=== PATIENT | female | born 1995 | race Caucasian/White ===

== ENCOUNTER 2018-11-05 18:26 | Emergency (ER) | payer MEDICAID ==
[2018-11-05 18:32] VITALS: BP 127/80
--- NOTE | 2018-11-05 19:30 | XRAY Report ---
Reason: pain/swelling after hitting it saturday Procedure Date: 11/05/2018 Accession Number: [id number] / [id number] Procedure: XR - Finger(s) RT CPT Code: FULL RESULT: EXAM: RIGHT DIGIT RADIOGRAPHY EXAM DATE: 11/05/2018 07:10 PM. CLINICAL HISTORY: Pain/swelling after hitting it saturday. COMPARISON: None. TECHNIQUE: 3 views. FINDINGS: Bones: No acute fractures or suspicious bone lesions. Joints: No subluxations. Soft Tissues: Unremarkable. IMPRESSION: No acute radiographic abnormalities. RADIA
--- NOTE | 2018-11-05 19:37 | ED Physician Documentation ---
PD HPI UPPER EXT INJURY - Stated complaint Stated Complaint: RT HAND MIDDLE FINGER PX - Chief complaint Chief Complaint: Ext Problem - History obtained from History obtained from: Patient - History of Present Illness Location: Right, Finger (middle) Type of injury: Blunt / blow (she struck it while riding horse. Denies twisting injury per se. Has had bruising and pain/tenderness still. Has bulky splint on which she says does not make it feel better.) Where injury occurred: Home Timing - onset: How many days ago (3) Timing - duration: Days (3) Timing - details: Abrupt onset, Still present Improved by: Rest Worsened by: Moving, Palpating Associated symptoms: Swelling, Discolored (bruising). No: Weakness, Numbness Similar symptoms before: Has not had sx before Recently seen: Not recently seen Review of Systems Constitutional: denies: Fever, Chills Skin: denies: Abrasion (s), Laceration (s) Neurologic: denies: Focal weakness, Numbness PD PAST MEDICAL HISTORY - Past Medical History Past Medical History: Yes Respiratory: Asthma Psych: Depression - Past Surgical History Past Surgical History: No - Present Medications Home Medications: Ambulatory Orders Medication Instructions Recorded Confirmed Bcp 05/04/15 05/04/15 Doxylamine/Pyridoxine HCl 1 each PO Q6H PRN #15 tablet. 04/02/16 11/07/17 [Keeley Edmond 10-10 mg Tablet] Vitamin [Trinatal Rx 1] 1 each PO DAILY #90 tablet 04/02/16 11/07/17 Acyclovir 400 mg PO Q8H #30 tablet 11/07/17 Metronidazole [Flagyl] 500 mg PO BID #14 tablet 11/07/17 Polymyxin B Sulf/Trimethoprim 1 drop LEFTEYE Q3H 7 Days drops 11/07/17 [Polytrim Eye Drops] - Allergies Allergies/Adverse Reactions: Allergies Allergy/AdvReac Type Severity Reaction Status Date / Time Penicillins Allergy Mild Rash Verified 11/05/18 18:32 - Social History Does the pt smoke?: No Smoking Status: Never smoker Does the pt drink ETOH?: No Does the pt have substance abuse?: No - Immunizations Immunizations are current?: Yes - POLST Patient has POLST: No PD ED PE NORMAL - Vitals Vital signs reviewed: Yes - General General: Alert and oriented X 3, No acute distress, Well developed/nourished - Derm Derm: Normal color, Warm and dry - Extremities Extremities: Other (right middle finger with some bruising dorsally at middle phalanx mostly. No deformity. Guarded/stiff ROM. Able to extend and flex. No laxity noted on stress testing of IP collateral ligaments. ) - Neuro Neuro: Alert and oriented X 3, No motor deficit, No sensory deficit Results - Vitals Vitals: Oxygen O2 Source Room air - Rads (name of study) finger xray right middle Radiology: Prelim report reviewed, EMP read contemporaneously (no fractures), See rad report PD MEDICAL DECISION MAKING - ED course Complexity details: reviewed results (xray without bony deformity), considered differential (no gross laxity on finger joints. Tender c/w contusion. ), d/w patient Departure - Departure Disposition: 01 Home, Self Care Clinical Impression: Finger contusion Qualifiers: Encounter type: initial encounter Finger: middle finger Damage to nail status: without damage Laterality: right Qualified Code(s): S60.031A - Contusion of right middle finger without damage to nail, initial encounter Condition: Stable Record reviewed to determine appropriate education?: Yes Instructions: ED Contusion Finger Comments: Finger splint for the finger to help protect it. Progress use of it and range of motion as able. Your x-ray did not show any fractures. I presume will be sore for several days more to week. Tylenol or ibuprofen if needed for pains. Discharge Date/Time: 11/05/18 20:15
[2018-11-05] MEDS ORDERED: NAPROXEN 250 MG TABLET PO STA (20:00)
== END 2018-11-05 20:15 | disposition home or self-care (01) ==
LOC: ED 18:26
DX: S60.031A Contusion of right middle finger without damage to nail, initial encounter (principal); W22.8XXA Striking against or struck by other objects, initial encounter; Y93.52 Activity, horseback riding
CPT/HCPCS: 73140; 99283; A9270

== ENCOUNTER 2019-03-18 16:45 | Outpatient (CLI) | payer MEDICAID ==
--- NOTE | 2019-03-19 15:56 | Ultrasound Report ---
Reason: PRENANCY TEST POSITIVE Procedure Date: 03/18/2019 Accession Number: [id number] / [id number] Procedure: US - OB First Trimester CPT Code: FULL RESULT: EXAM: FIRST TRIMESTER OBSTETRIC ULTRASOUND (Less than 11 weeks) EXAM DATE: 03/18/2019 04:54 PM. CLINICAL HISTORY: TEST POSITIVE. LMP: 01/20/2019. COMPARISONS: OB F/U OR REPEAT 07/04/2016 3:22 PM OB DETAILED EVAL 05/31/2016 7:54 AM. TECHNIQUE: Transabdominal and transvaginal ultrasound examination with static image documentation. CLINICAL DATES: EGA 10 weeks 1 day with LILI 10/13/2019 based on LMP. ASSESSMENT: Gestational Sac: Single intrauterine. Mean gestational sac diameter: 40 mm. Embryo: CRL (crown-rump length) 32 mm = 9 weeks 5 days. Cardiac activity: 169 beats per minute. Yolk sac: 5 mm. Amniotic fluid: Not accurately assessed at this gestational age. Early placenta: Not visible at this gestational age. Other: No perigestational fluid collection demonstrated. MATERNAL STRUCTURES: Uterus: Anteverted. Unremarkable. Cervix: Closed. Right Ovary/Adnexa: The ovary measures 3.6 x 2.5 x 3.7 cm, volume 17.7 cc. Echogenic complex mass measuring 3.0 x 2.8 x 2.6 cm with hyperechoic foci. Left Ovary/Adnexa: The ovary measures 4.0 x 2.1 x 1.9 cm, volume 8.1 cc. Corpus luteum is noted. Free Fluid: None. Other: None. IMPRESSION: 1. Single viable intrauterine at EGA 9 weeks 5 days with LILI 10/16/2019 based on crown-rump length, which is concordant with LMP. 2. Assigned dating is LILI 10 weeks 1 day based on LMP. RADIA
== END 2019-03-18 16:46 | disposition home or self-care (01) ==
LOC: DI 16:45
PROVIDERS: ATTEND Registered Nurse
DX: Z32.01 Encounter for pregnancy test, result positive (principal)
CPT/HCPCS: 76801; 76817

== ENCOUNTER 2019-03-25 10:09 | Outpatient (CLI) | payer MEDICAID ==
[2019-03-25 10:42] LABS: BASOPHILS % (AUTO) 0.6 %; EOSINOPHILS # (AUTO) 0.1 10^3/uL (0.0-0.7); EOSINOPHILS % (AUTO) 0.9 %; HGB - HEMOGLOBIN 12.5 g/dL (12.0-16.0); LYMPHOCYTES # (AUTO) 1.5 10^3/uL (1.5-3.5); MEAN CORPUSCULAR HEMOGLOBIN 28.7 pg (27.0-31.0); MEAN CORPUSCULAR HGB CONC 33.8 g/dL (32.0-36.0); MEAN CORPUSCULAR VOLUME 85.1 fL (81.0-99.0); MEAN PLATELET VOLUME 7.9 fL (7.9-10.8); MONOCYTES # (AUTO) 0.4 10^3/uL (0.0-1.0); MONOCYTES % (AUTO) 5.8 %; NEUTROPHILS # (AUTO) 4.8 10^3/uL (1.5-6.6); NEUTROPHILS % (AUTO) 70.7 %; PLT - PLATELET COUNT 222 10^3/uL (130-450); RED BLOOD COUNT 4.35 10^6/uL (4.20-5.40); RED CELL DISTRIBUTION WIDTH 13.2 % (12.0-15.0); WHITE BLOOD COUNT 6.7 x10^3/uL (4.8-10.8)
[2019-03-25 10:49] LABS: MUDS CUTOFF CONCENTRATIONS CUTOFF CONC BELOW:
[2019-03-25 11:19] LABS: AMPHETAMINE SCREEN,URINE NEGATIVE (NEGATIVE); BENZODIAZEPINES SCREEN, URINE NEGATIVE (NEGATIVE); COCAINE SCREEN URINE NEGATIVE (NEGATIVE); METHADONE SCREEN, URINE NEGATIVE (NEGATIVE); METHAMPHETAMINES SCREEN, URINE NEGATIVE (NEGATIVE); OPIATE SCREEN, URINE NEGATIVE (NEGATIVE); OXYCODONE SCREEN, URINE NEGATIVE (NEGATIVE); PROPOXYPHENE SCREEN, URINE NEGATIVE (NEGATIVE); TRICYCLIC ANTIDEPRESSANT,URINE NEGATIVE (NEGATIVE)
[2019-03-25 21:48] LABS: TRICHOMONAS VAGINALIS DNA NEGATIVE (NEGATIVE)
[2019-03-26 12:11] LABS: HEPATITIS C ANTIBODY NON-REACTIVE (NON-REACTIVE)
[2019-03-26 12:12] LABS: HEPATITIS B SURFACE ANTIGEN NON-REACTIVE (NON-REACTIVE)
[2019-03-26 14:56] LABS: HIV AG/AB 4TH GEN NON-REACTIVE (NON-REACTIVE)
== END 2019-03-25 10:10 | disposition home or self-care (01) ==
LOC: LAB 10:09
PROVIDERS: ATTEND Nurse Practitioner Obstetrics & Gynecology
DX: Z36.89 Encounter for other specified antenatal screening (principal)
CPT/HCPCS: 36415; 80306; 81599; 85025; 86592; 86762; 86803; 86850; 86900; 86901; 87340; 87389; 87491; 87591; 87661

== ENCOUNTER 2019-05-25 07:37 | Outpatient (CLI) | payer MEDICAID ==
--- NOTE | 2019-05-26 10:37 | Ultrasound Report ---
Reason: ENCOUNTER FOR OTHER SPECIFIED SCREENING Procedure Date: 05/25/2019 Accession Number: [id number] / [id number] Procedure: US - OB Detailed Eval CPT Code: FULL RESULT: EXAM: COMPLETE OBSTETRICAL ULTRASOUND EXAM DATE: 05/25/2019 07:48 AM. CLINICAL HISTORY: anatomic survey. COMPARISON: OB FIRST TRIMESTER 03/18/2019 4:54 PM. TECHNIQUE: Real-time sonographic evaluation of the fetus performed by the pre kindergarten teacher. Multiple underwriting sales representative static images were saved for review. Additional transvaginal imaging to more accurately evaluate cervical length/placental position/etc. DATING: Established EGA 19 weeks 6 days with LILI 10/13/2019 based on provided assigned dating. EGA 19 weeks 6 days with LILI 10/13/2019 based on the current ultrasound. GENERAL EVALUATION Olivo . Cardiac activity: 149 bpm. movement: Visualized. Presentation: Cephalic. Placenta: Posterior position. No evidence for previa. Umbilical cord: 3 vessel cord. Central placental cord origin into placental ford. Amniotic fluid: Normal. ALLEY 9.9 MVP 3.2 cm. BIOMETRY Bi-Parietal Diameter (BPD): 4.66 cm, 20 weeks 1 days Head Circumference (HC): 17.2 cm, 19 weeks 5 days Abdominal Circumference (AC): 14.0 cm, 19 weeks 3 days Femur Length (FL): 3.2 cm, 19 weeks 6 days Estimated Weight: 304 g, 33 percentile for weeks/days. ANATOMY The intracranial structures, profile, face/nose/lips, spine, 4 chamber heart and outflow tracts, stomach, abdominal wall and cord insertion, diaphragm, kidneys, bladder, and extremities were visualized and demonstrate no abnormality. MATERNAL STRUCTURES Uterus: Unremarkable. Cervix: Long and closed. Transabdominal length 4.2 cm. Right ovary/adnexa: Unremarkable. Left ovary/adnexa: Unremarkable. Free fluid: None. IMPRESSION: 1. Olivo live intrauterine with gestational age 19 weeks 6 days based on assigned dating. 2. Estimated weight is within expected limits for assigned dating. 3. Normal anatomic survey. No anatomic abnormalities are detected at this time. RADIA
== END 2019-05-25 07:38 | disposition home or self-care (01) ==
LOC: DI 07:37
PROVIDERS: ATTEND Nurse Practitioner Obstetrics & Gynecology
DX: Z36.89 Encounter for other specified antenatal screening (principal)
CPT/HCPCS: 76811

== ENCOUNTER 2019-07-17 08:00 | Outpatient (CLI) | payer MEDICAID | END 2019-07-17 23:59 | disposition home or self-care (01) | LOC: LAB.R 08:00 | PROVIDERS: ATTEND Obstetrics & Gynecology | DX: O60.02 Preterm labor without delivery, second trimester (principal) | CPT/HCPCS: 82731 ==

== ENCOUNTER 2019-07-17 10:42 | Outpatient (CLI) | payer MEDICAID ==
--- NOTE | 2019-07-17 13:28 | Ultrasound Report ---
Reason: SMALL FOR GESTATIONAL AGE FETUS,PELVIC PAIN,PRE Procedure Date: 07/17/2019 Accession Number: [id number] / [id number] Procedure: US - OB F/U or Repeat CPT Code: FULL RESULT: EXAM: FOLLOW-UP OBSTETRICAL ULTRASOUND EXAM DATE: 07/17/2019 11:51 AM. CLINICAL HISTORY: Pelvic pain. Small for gestational age. COMPARISON: OB DETAILED EVAL 05/25/2019 7:48 AM. TECHNIQUE: Real-time sonographic evaluation of the fetus performed by the chemical production technician. Additional transvaginal imaging to more accurately evaluate cervical length/placental position/etc. Multiple apprenticeship training representative static images were saved for review. DATING: Established EGA 27 weeks 3 days with LILI 10/13/2019 based on established dating. EGA 27 weeks 3 days with LILI 10/13/2019 based on prior ultrasound. EGA 26 weeks 6 days with LILI 10/17/2019 based on the current ultrasound. GENERAL EVALUATION Olivo . Cardiac activity: 148 bpm. movement: Visualized. Presentation: Cephalic. Placenta: Posterior position. Amniotic fluid: Normal. ALLEY 11.0 cm. MVP 3.4 cm. BIOMETRY Bi-Parietal Diameter (BPD): 6.8 cm, 27 weeks 0 days Head Circumference (HC): 25.2 cm, 27 weeks 3 days Abdominal Circumference (AC): 20.9 cm, 25 weeks 3 days Femur Length (FL): 5.2 cm, 27 weeks 4 days Estimated Weight: 946 g, 11.0 percentile for 27 week 3 day gestation. MATERNAL STRUCTURES Cervix is closed and measures 4.2 cm in length by transvaginal imaging. IMPRESSION: 1. Olivo live intrauterine with gestational age 27 weeks 3 days based on established dates. 2. Estimated weight is within expected limits for assigned dating. Estimated weight is 946 g corresponding to 11th percentile rank, previously 33rd percentile. 3. Normal amniotic fluid volume. ALLEY 11.0 cm. 4. Closed 4.2 cm long cervix. RADIA
== END 2019-07-17 10:43 | disposition home or self-care (01) ==
LOC: DI 10:42
PROVIDERS: ATTEND Obstetrics & Gynecology
DX: O60.02 Preterm labor without delivery, second trimester (principal); O36.5920 Maternal care for other known or suspected poor fetal growth, second trimester, not applicable or unspecified; O99.89 Other specified diseases and conditions complicating pregnancy, childbirth and the puerperium; R10.2 Pelvic and perineal pain; Z3A.27 27 weeks gestation of pregnancy
CPT/HCPCS: 76816; 82731

== ENCOUNTER 2019-07-24 10:17 | Outpatient (CLI) | payer MEDICAID ==
[2019-07-24 11:27] LABS: HGB - HEMOGLOBIN 10.7 g/dL (12.0-16.0); MEAN CORPUSCULAR HEMOGLOBIN 29.3 pg (27.0-31.0); MEAN CORPUSCULAR HGB CONC 32.9 g/dL (32.0-36.0); MEAN PLATELET VOLUME 10.1 fL (7.9-10.8); RED BLOOD COUNT 3.65 10^6/uL (4.20-5.40); RED CELL DISTRIBUTION WIDTH 12.5 % (12.0-15.0); WHITE BLOOD COUNT 7.4 x10^3/uL (4.8-10.8)
== END 2019-07-24 10:18 | disposition home or self-care (01) ==
LOC: LAB 10:17
PROVIDERS: ATTEND Obstetrics & Gynecology
DX: Z36.89 Encounter for other specified antenatal screening (principal)
CPT/HCPCS: 36415; 82950; 85027; 86850

== ENCOUNTER 2019-08-16 09:17 | Outpatient (CLI) | payer MEDICAID ==
--- NOTE | 2019-08-17 12:52 | Ultrasound Report ---
Reason: UTERINE SIZE DATE DISCREPANCY THIRD TRIMESTER, SMA Procedure Date: 08/16/2019 Accession Number: [id number] / [id number] Procedure: US - OB F/U or Repeat CPT Code: FULL RESULT: EXAM: FOLLOW-UP OBSTETRICAL ULTRASOUND EXAM DATE: 08/16/2019 09:25 AM. CLINICAL HISTORY: UTERINE SIZE DATE DISCREPANCY THIRD TRIMESTER, small for gestational age COMPARISON: OB F/U OR REPEAT 07/17/2019 11:00 AM OB FIRST TRIMESTER 03/18/2019 4:54 PM. TECHNIQUE: Real-time sonographic evaluation of the fetus performed by the supervisor powder and primer canning. Multiple motor vehicle representative static images were saved for review. DATING: Established EGA 31 weeks 5 days with LILI 10/13/2019 based on LMP of 01/20/2019. EGA 31 weeks 2 days with LILI 10/16/2019 based on prior ultrasound of 03/18/2019. EGA 32 weeks 0 days with ILLI 10/11/2019 based on the current ultrasound. GENERAL EVALUATION Olivo . Cardiac activity: 167 bpm. movement: Present Presentation: Cephalic. Placenta: Posterior position. Amniotic fluid: Normal. ALLEY 9.8 cm. MVP 3.1 cm. BIOMETRY Bi-Parietal Diameter (BPD): 8.3 cm, 33 weeks 3 days Head Circumference (HC): 29.3 cm, 32 weeks 2 days Abdominal Circumference (AC): 27.2 cm, 31 weeks 2 days Femur Length (FL): 5.9 cm, 30 weeks 6 days Estimated Weight: 1764 g, 29th percentile for 31 weeks 5 days. ANATOMY Not assessed today MATERNAL STRUCTURES Right ovary 4.2 x 3.4 x 2.7 cm containing a uniformly hyperechoic 3.5 x 3.1 x 2.5 cm structure, likely a dermoid, similar to the ultrasound of 03/18/2019 IMPRESSION: 1. Olivo intrauterine with gestational age 31 weeks 5 days based on LMP. 2. Estimated weight is within expected limits for assigned dating. 3. Normal interval growth compared to 03/18/2019. 4. Stable uniformly hyperechoic 3.5 x 3.1 x 2.5 cm structure right adnexa, possible dermoid. RADIA
== END 2019-08-16 09:18 | disposition home or self-care (01) ==
LOC: DI 09:17
PROVIDERS: ATTEND Nurse Practitioner Obstetrics & Gynecology
DX: O26.843 Uterine size-date discrepancy, third trimester (principal); R93.89 Abnormal findings on diagnostic imaging of other specified body structures
CPT/HCPCS: 76816

== ENCOUNTER 2019-09-15 07:00 | Outpatient (CLI) | payer MEDICAID ==
[2019-09-15 19:07] LABS: TRICHOMONAS VAGINALIS DNA NEGATIVE (NEGATIVE)
== END 2019-09-15 23:59 | disposition home or self-care (01) ==
LOC: LAB.R 07:00
PROVIDERS: ATTEND Nurse Practitioner Obstetrics & Gynecology
DX: Z36.85 Encounter for antenatal screening for Streptococcus B (principal); Z11.3 Encounter for screening for infections with a predominantly sexual mode of transmission
CPT/HCPCS: 87491; 87591; 87661; 87797

== ENCOUNTER 2019-09-27 14:36 | Outpatient (CLI) | payer MEDICAID ==
--- NOTE | 2019-09-27 22:53 | Ultrasound Report ---
Reason: UTERINE SIZE/DATE DISCREPANCY Procedure Date: 09/27/2019 Accession Number: [id number] / [id number] Procedure: US - OB F/U or Repeat CPT Code: Final Report FULL RESULT: EXAM: FOLLOW-UP OBSTETRICAL ULTRASOUND EXAM DATE: 09/27/2019 04:21 PM. CLINICAL HISTORY: UTERINE SIZE/DATE DISCREPANCY. COMPARISON: OB F/U OR REPEAT 08/16/2019 9:25 AM. TECHNIQUE: Real-time sonographic evaluation of the fetus performed by the lobster catcher. Multiple regional sales representative static images were saved for review. DATING: Established EGA 37 weeks 5 days with LILI 10/13/2019 based on LMP 01/06/2019. EGA 37 weeks 2 days with LILI 10/16/2019 based on previous ultrasound study of 03/18/2019. EGA 37 weeks 1 day with LILI 10/17/2019 based on the current ultrasound. GENERAL EVALUATION Olivo . Cardiac activity: 159 bpm. movement: Visualized. Presentation: Cephalic. Placenta: Posterior left position. Amniotic fluid: Normal. ALLEY 11.9 cm. MVP 3.7 cm. BIOMETRY Bi-Parietal Diameter (BPD): 9.5 cm, 38 weeks 6 days Head Circumference (HC): 32.6 cm, 36 weeks 6 days Abdominal Circumference (AC): 33.3 cm, 37 weeks 1 day Femur Length (FL): 6.9 cm, 35 weeks 4 days Estimated Weight: 3073 g, 39.7% percentile for weeks/days. ANATOMY No discernible abnormalities. MATERNAL STRUCTURES Right ovarian dermoid 3.4 x 3.2 x 3.0 sonometers. IMPRESSION: 1. Olivo live intrauterine with gestational age 37 weeks 5 days based on source of assigned dating. Gestational age based upon the present ultrasound 37 weeks 1 day. 2. Estimated weight is within expected limits for assigned dating. 3. Interval growth compared to date of prior biometry. RADIA
== END 2019-09-27 14:37 | disposition home or self-care (01) ==
LOC: DI 14:36
PROVIDERS: ATTEND Nurse Practitioner Obstetrics & Gynecology
DX: O26.843 Uterine size-date discrepancy, third trimester (principal); Z3A.37 37 weeks gestation of pregnancy
CPT/HCPCS: 76816

== ENCOUNTER 2019-10-06 06:50 | Observation (INO) | payer MEDICAID ==
[2019-10-06] MEDS ORDERED: SODIUM CHLORIDE FLUSH 0.9% 10 ML SYRINGE IVP PRN (09:18)
[2019-10-06] MEDS ORDERED: ONDANSETRON 4 MG/2 ML VIAL IVP PRN (09:18)
--- NOTE | 2019-10-06 09:23 | HISTORY & PHYSICAL EXAMINATION ---
Admit History - Visit Reason Visit Reason: Other - : 2 Parity: 1 Premature: 0 Ectopic: 0 : 0 Care: positive: [facility] Risk/History: positive: None Complications This : positive: None Smoking Status: Former smoker - Mother's Labs Mother's Blood Type: positive: O Mother's RH: positive: Positive GBS: positive: Group B Step Negative Rubella Status: positive: Immune Meds/Allgy - Home Medications Home Medications: Ambulatory Orders Medication Instructions Recorded Confirmed Bcp 05/04/15 05/04/15 Doxylamine/Pyridoxine HCl 1 each PO Q6H PRN #15 tablet. 04/02/16 11/07/17 [Keeley Edmond 10-10 mg Tablet] Vitamin [Trinatal Rx 1] 1 each PO DAILY #90 tablet 04/02/16 11/07/17 Acyclovir 400 mg PO Q8H #30 tablet 11/07/17 Metronidazole [Flagyl] 500 mg PO BID #14 tablet 11/07/17 Polymyxin B Sulf/Trimethoprim 1 drop LEFTEYE Q3H 7 Days drops 11/07/17 [Polytrim Eye Drops] - Allergies Allergies/Adverse Reactions: Allergies Allergy/AdvReac Type Severity Reaction Status Date / Time Penicillins Allergy Mild Rash Verified 11/05/18 18:32 pumpkin Allergy Hives Verified 10/06/19 07:09 Review of Systems - Constitutional Constitutional: denies: Fever, Chills, Malaise - Eyes Eyes: denies: Blurred vision, Spots in vision, Dipolpia - Cardiovascular Cariovascular: denies: Irregular heart rate, Palpitations, Chest pain, Edema - Respiratory Respiratory: denies: SOB at rest - Gastrointestinal Gastrointestinal: denies: Abdominal pain, Constipation, Diarrhea, Change in bowel habits - Integumentary Integumentary: denies: Rash, Pruritis - Neurological Neurological: denies: Headache Physical - Abdominal Exam Uterine Resting Tone: positive: Soft - Monitoring Heart Rate Baseline: 150 Strip Review: positive: Category I - Presentation Presentation: positive: Vertex - Vaginal Exam Membranes: positive: Membranes intact Dilation (in cm): 1 Effacement (%): 0 Station: positive: -3 Cervical Position: positive: Posterior - Speculum Exam Speculum Exam Performed: positive: No Plan for Labor - Plan For Labor I expect patient to be DC'd or transferred within 96 hours.: Yes Plan for Labor: HPI: This 24yo @ 39.0wks gestation presents to [facility] for elective induction of labor secondary to significant maternal discomfort for the past several weeks. Upon arrival cervix was 1/thick/high, posterior, medium, vertex. Membranes intact. She denies vaginal bleeding or leakage of fluid. Intermittent contractions but nothing overly uncomfortable. Reports +FM. She has been a patient of [facility] through the duration of her which has been complicated by persistently measuring size less than dates. She has had multiple growth and ALLEY assessments (detailed below) which have all been WNL. In addition she has been noted to have anemia complicated for which she is taking PO FeSO4. Of note, FOB has Hirshprung disease - had genetic counseling with [facility] and recommendation was ship engines operating engineer be made aware at time of delivery for prompt evaluation. She was placed in observation status on [facility] for pre-induction cervical ripening with misoprostol. Dating criteria: LMP 01/20/2019 Initial ultrasound: @ 11.1wks gestation c/w LMP dating Serial exams - agree OB Hx: G1: 10/05/2016 @ 40.3wks gestation, epidural, Female, 7lbs 6.6oz, 11hr labor G2: Current PMHx: Anxiety, asthma, headaches/migraines, UTI - recurrent Surgical Hx: none Social Hx: Former smoker, no ETOH or IVDA. Pt is a SAHM. Family Hx: Anxiety/depression - mother; Diabetes -PGM; Heart disease- MGM; High cholesterol - MGM; HTN - MGM Medications: PNV, FeSO4, diclegis, albuterol PRN Allergies: Pumpkin, Penicillin (critical) labs: O positive, antibody negative Rubella immune HIV non-reactive Hep B neg; Hep C neg RPR non-reactive UTOX neg GC/CT neg 1 hour GTT 94 GBS NEG, repeat GC/CT neg Genetic testing - not done due to insurance coverage; had genetic counseling appt with [facility] secondary to paternal diagnosis of Hirshprung disease. Recommendation that baby's ship engines operating engineer be made aware at time of delivery from prompt evaluation. Immunizations: Influenza 07/31/2019 Tdap 07/17/2019 Ultrasounds: FAS: WNL. Posterior placenta, no previa. 3VC. ALLEY WNL. Size c/w dating. Growth and ALLEY @ 27wks WNL. EFW 11th percentile. Recommendation to f/u growth and ALLEY in 4 weeks F/u ultrasound for growth and ALLEY - 08/16/2019 WNL; Growth 29th percentile and A FI 9.1 09/27/19 growth and ALLEY WNL EFW 3073, 37.3%tile Physical Exam: Normocephalic, atraumatic PERRLA Heart RRR w/o M/G/R Lungs CTAB Abdomen gravid, soft, nontender EFW 3000g FHR baseline 150s, moderate variability, + accels, no decels SVE 1/thick/high, posterior, vertex; membranes intact No contractions appreciated via tocometry Bilateral LE's no edema Mood is good; family supportive at the bedside Assessment: 24yo @ 39.0wks gestation by LMP c/w 11.1wk U/S FHR Category I Cervix unfavorable GBS neg Plan: Place in observation status until SROM or active labor Pre-induction cervical ripening with 50mcg BC misoprostol q 4 hrs Continuous monitoring Reviewed plan of care with patient, family, and labor RN who are in agreement with above plan and deny further questions or concerns at this time. Anticipate .
[2019-10-06 09:32] LABS: BASOPHILS % (AUTO) 0.5 %; EOSINOPHILS # (AUTO) 0.1 10^3/uL (0.0-0.7); EOSINOPHILS % (AUTO) 1.1 %; HGB - HEMOGLOBIN 10.7 g/dL (12.0-16.0); LYMPHOCYTES # (AUTO) 1.3 10^3/uL (1.5-3.5); MEAN CORPUSCULAR HEMOGLOBIN 28.5 pg (27.0-31.0); MEAN CORPUSCULAR HGB CONC 32.2 g/dL (32.0-36.0); MEAN CORPUSCULAR VOLUME 88.5 fL (81.0-99.0); MEAN PLATELET VOLUME 11.1 fL (7.9-10.8); MONOCYTES # (AUTO) 0.5 10^3/uL (0.0-1.0); MONOCYTES % (AUTO) 6.2 %; NEUTROPHILS # (AUTO) 6.6 10^3/uL (1.5-6.6); NEUTROPHILS % (AUTO) 76.7 %; PLT - PLATELET COUNT 138 10^3/uL (130-450); RED BLOOD COUNT 3.75 10^6/uL (4.20-5.40); RED CELL DISTRIBUTION WIDTH 14.6 % (12.0-15.0); WHITE BLOOD COUNT 8.6 x10^3/uL (4.8-10.8)
[2019-10-06] MEDS: miSOPROStoL 100 MCG TABLET BC SCH ×3 (10:24→19:07)
[2019-10-06] MEDS ORDERED: miSOPROStoL 100 MCG TABLET BC SCH (13:00)
[2019-10-06] MEDS: LACTATED RINGERS 1,000 ML IV SCH ×2 (17:10→21:32)
[2019-10-06] MEDS ORDERED: ZOLPIDEM 5 MG TABLET PO PRN (18:56)
[2019-10-07] MEDS: miSOPROStoL 100 MCG TABLET BC SCH ×3 (09:34→17:51)
[2019-10-07] MEDS: SODIUM CHLORIDE FLUSH 0.9% 10 ML SYRINGE IVP SCH ×3 (12:08→17:52)
[2019-10-07] MEDS: LACTATED RINGERS 1,000 ML IV SCH ×2 (12:08→17:50)
[2019-10-07] MEDS ORDERED: LACTATED RINGERS 500 ML IV ONE (12:55)
[2019-10-07 13:41] LABS: BILIRUBIN,URINE NEGATIVE (NEGATIVE); CLARITY,URINE HAZY (CLEAR); GLUCOSE, URINE (UA) NEGATIVE (NEGATIVE); KETONES,URINE (UA) NEGATIVE (NEGATIVE); LEUKOCYTE ESTERASE, URINE TRACE (NEGATIVE); NITRITE,URINE NEGATIVE (NEGATIVE); OCCULT BLOOD,URINE TRACE-LYSE (NEGATIVE); PH,URINE 6.5 PH (5.0-7.5); PROTEIN,URINE NEGATIVE (NEGATIVE); UROBILINOGEN,URINE 0.2 (NORMAL) E.U./dL (NORMAL)
[2019-10-07 13:54] LABS: BACTERIA,URINE Many /HPF (None Seen); RBC,URINE 0-5 /HPF (0-5); SQUAMOUS EPITHELIAL CELL,UR MANY Squamous (<= Few)
[2019-10-07 13:55] LABS: AMORPHOUS SEDIMENT,UR Marked /LPF
--- NOTE | 2019-10-07 14:20 | PROVIDER PROGRESS NOTE ---
Subjective - Prog Note Date Prog Note Date: 10/07/19 Prog Note Time: 09:00 - Subjective Subjective: Pt crying in bed with discomfort in her back. She reports the discomfort is constant. She denies leakage of fluid. She states she does not feel that this p ain is associated with contractions. She is able to appreciate contractions which she rates 2-3/10 on a pain scale but is rating the constant back pain 8/10. She states she was able to sleep well throughout the night last night and was only in discomfort upon waking up this morning. We reviewed the option of going home so she can rest in her own bed but she does not want to do this. She desires to continue on with elective IOL. Assessment: 24yo @ 39.1wks gestation Elective IOL secondary to maternal discomfort- s/p 2 doses of 50mcg BC misoprostol GBS neg Back pain FHR Category I Plan: Collect UA and C&S if indicated Continuous monitoring Continue misoprostol 50mcg q 4 hours for pre-induction cervical ripening Advised her to get into the jacuzzi to promote relaxation and ease back discomfort. Pt verbalized understanding and agrees to above plan. She denies further questio ns or concerns at this time. Objective - Vital Signs/Intake & Output Intake & Output: Intake & Output 10/04/19 10/05/19 10/06/19 10/07/19 23:59 23:59 23:59 23:59 Intake Total 0 1078.333 Balance 2080 1078.333 - Lab Results Fish Bones: 10/06/19 08:55 Other Labs: Lab Results x24hrs 10/07/19 Range/Units 13:11 Urine Color LIGHT YELLOW Urine Clarity HAZY (CLEAR) Urine pH 6.5 (5.0-7.5) PH Ur Specific [place] <=1.005 (1.002-1.030) Urine Protein NEGATIVE (NEGATIVE) mg/dL Urine Glucose (UA) NEGATIVE (NEGATIVE) mg/dL Urine Ketones NEGATIVE (NEGATIVE) mg/dL Urine Occult Blood TRACE-LYSE (NEGATIVE) Urine Nitrite NEGATIVE (NEGATIVE) Urine Bilirubin NEGATIVE (NEGATIVE) Urine Urobilinogen 0.2 (NORMAL) (NORMAL) E.U./dL Ur Leukocyte Esterase TRACE H (NEGATIVE) Urine RBC 0-5 (0-5) /HPF Urine WBC 6-10 H (0-5) /HPF Ur Squamous Epith Cells MANY Squamous H (<= Few) Amorphous Sediment Marked /LPF Urine Bacteria Many H (None Seen) /HPF Ur Microscopic Review INDICATED Urine Culture Comments NOT INDICATED
--- NOTE | 2019-10-07 14:28 | PROVIDER PROGRESS NOTE ---
Subjective - Subjective Subjective: S: Patient laying comfortably in the bed. She was able to fall asleep through her back discomfort and has been able to sleep much of the morning. She reports currently her back pain seems to have subsided. She is unable to urinate and states she has not been drinking that much water. She denies urinary symptoms. She reports mild contractions every 1-5 minutes but is rating them 1-3/10 on a pain scale. We again discussed going home prior to her next dosage of misoprostol and pt states she has difficulty with transportation and strongly desires to continue with elective induction of labor. She is feeling somewhat frustrating with the lack of progress. Mother and supportive at the bedside. O: FHR baseline 150s, moderate variabilit, + accels, no decels SVE deferred Contractions palpate mild every 1-5 minutes with soft resting tone UA negative A: 24yo @ 39.1wks gestation Elective IOL with pre-induction cervical ripening s/p 3 doses of 50mcg BC misoprostol GBS neg FHR Category I P: Fluid bolus x 500cc secondary to maternal dehydration - FHR baseline increas ed during the night and improved with fluid bolus. FHR baseline seems to be increasing slightly and in combination with inability to urinate for 45-60 minutes to collect a UA there is some concern for mild maternal dehydration. Continue 50mcg BC misoprostol q 4 hours for preinduction cervical ripening Continuous monitoring Reviewed placement of zamora cervical ripening balloon with next dose of misoprostol if SVE unchanged. Pt, family at the bedside, and labor RN all verbalized understanding and are in agreement with above plan. They deny further questions or concerns at this time. Objective - Vital Signs/Intake & Output Intake & Output: Intake & Output 10/04/19 10/05/19 10/06/19 10/07/19 23:59 23:59 23:59 23:59 Intake Total 0 1078.333 Balance 2079 1078.333 - Lab Results Fish Bones: 10/06/19 08:55 Other Labs: Lab Results x24hrs 10/07/19 Range/Units 13:11 Urine Color LIGHT YELLOW Urine Clarity HAZY (CLEAR) Urine pH 6.5 (5.0-7.5) PH Ur Specific [place] <=1.005 (1.002-1.030) Urine Protein NEGATIVE (NEGATIVE) mg/dL Urine Glucose (UA) NEGATIVE (NEGATIVE) mg/dL Urine Ketones NEGATIVE (NEGATIVE) mg/dL Urine Occult Blood TRACE-LYSE (NEGATIVE) Urine Nitrite NEGATIVE (NEGATIVE) Urine Bilirubin NEGATIVE (NEGATIVE) Urine Urobilinogen 0.2 (NORMAL) (NORMAL) E.U./dL Ur Leukocyte Esterase TRACE H (NEGATIVE) Urine RBC 0-5 (0-5) /HPF Urine WBC 6-10 H (0-5) /HPF Ur Squamous Epith Cells MANY Squamous H (<= Few) Amorphous Sediment Marked /LPF Urine Bacteria Many H (None Seen) /HPF Ur Microscopic Review INDICATED Urine Culture Comments NOT INDICATED
--- NOTE | 2019-10-07 18:43 | PROVIDER PROGRESS NOTE ---
Subjective - Subjective Subjective: SVE 1/thick/high, posterior, vertex. Contractions palpate mild intermittently and patient continues to rate 1-3/10 on a pain scale. She reports improvement in her back pain and states it seems worse when she lays down in bed. Due to lack of cervical change s/p 4 doses of misoprostol and staffing concerns on the unit, the pt was encouraged to go home at this time and rest. She was released home with precautions and warning s/sx. Will call patient to have her return for continued cervical ripening when adequate staffing for elective induction of labor are available. Pt verbalized understanding and agrees to above plan. she denies further questions or concerns at this time. Objective - Vital Signs/Intake & Output Intake & Output: Intake & Output 10/04/19 10/05/19 10/06/19 10/07/19 23:59 23:59 23:59 23:59 Intake Total 2079 1999. Balance 2079 - Lab Results Fish Bones: 10/06/19 08:55 Other Labs: Lab Results x24hrs 10/07/19 Range/Units 13:11 Urine Color LIGHT YELLOW Urine Clarity HAZY (CLEAR) Urine pH 6.5 (5.0-7.5) PH Ur Specific Bradley <=1.005 (1.002-1.030) Urine Protein NEGATIVE (NEGATIVE) mg/dL Urine Glucose (UA) NEGATIVE (NEGATIVE) mg/dL Urine Ketones NEGATIVE (NEGATIVE) mg/dL Urine Occult Blood TRACE-LYSE (NEGATIVE) Urine Nitrite NEGATIVE (NEGATIVE) Urine Bilirubin NEGATIVE (NEGATIVE) Urine Urobilinogen 0.2 (NORMAL) (NORMAL) E.U./dL Ur Leukocyte Esterase TRACE H (NEGATIVE) Urine RBC 0-5 (0-5) /HPF Urine WBC 6-10 H (0-5) /HPF Ur Squamous Epith Cells MANY Squamous H (<= Few) Amorphous Sediment Marked /LPF Urine Bacteria Many H (None Seen) /HPF Ur Microscopic Review INDICATED Urine Culture Comments NOT INDICATED
== END 2019-10-07 18:51 | disposition home or self-care (01) ==
LOC: WFO 06:50 → FBP 06:56 → WFO 06:59 → FBP 07:00
PROVIDERS: ADMIT Nurse Practitioner Obstetrics & Gynecology; ATTEND Nurse Practitioner Obstetrics & Gynecology
DX: O61.0 Failed medical induction of labor (principal); O26.893 Other specified pregnancy related conditions, third trimester; O99.013 Anemia complicating pregnancy, third trimester; Z3A.39 39 weeks gestation of pregnancy; Z87.891 Personal history of nicotine dependence
CPT/HCPCS: 81001; 85025; 96360; 96361; A9270; G0378; J7120; 81003; 87086

== ENCOUNTER 2019-10-08 03:48 | Outpatient (CLI) | payer MEDICAID ==
[2019-10-08 04:13] VITALS: BP 121/70
--- NOTE | 2019-10-09 07:48 | PROVIDER PROGRESS NOTE ---
- HPI Chief Complaint: Labor Check Current : Current EDU 10/15/19 Gestation 39 Weeks and 0 Days 2 Para 1 Vital Signs Temperature 36.5 C 10/08/19 04:01 Heart Rate 82 10/08/19 04:01 Respiratory Rate 18 10/08/19 04:01 Blood Pressure 121/70 10/08/19 04:01 O2 Saturation 99 10/08/19 04:01 Temperature 36.5 C 10/08/19 04:01 Heart Rate 82 10/08/19 04:01 Respiratory Rate 18 10/08/19 04:01 Blood Pressure 121/70 10/08/19 04:01 O2 Saturation 99 10/08/19 04:01 - Exam SVE 1/50/-3, posterior, vertex. NST reactive. Baseline 140s, moderate variability, + accels, no decels Repeat SVE in 2 hours unchanged. - Procedures OB Procedure Performed: NST NST Procedure: NST reactive: FHR baseline 140s, moderate variability, + accels, no decels Service Date of procedure: 10/08/19 - Plan Plan: 24yo @ 39.5wks gestation present to [facility] with c/o contractions which have increased in frequency after her discharge home from [facility] yesterday. During her stay at that time she had received 5 total doses of 50mcg BC misoprostol over the course of 32 hours for pre-induction cervical ripening in anticipate for elective induction of labor. She was monitored x 5 hours after her last dose of misoprostol and was appreciating some mild uterine cramping/co ntractions at that time which she was rating 1-3/10 on a pain scale. She was advised to increase her fluid intake with her discharge home and she admittedly has not been drinking enough water. She states her contractions have been increasing in intensity since she has been at home and is rating them 7-8/10. SVE 1/50/-3, posterior, vertex. She reports +FM and denies vaginal bleeding or leakage of fluid. Patient was monitored x 2.5 hours. NST performed 10/08/19 and read 10/09/19 FHR baseline 140s, moderate variability, + accels, no decels Repeat SVE unchanged from initial check and pt reports her discomfort improved during her time. Pt was released home with precautions and warning s/sx for when to present. She intends to call the unit 10/09/19 in the am to be given a time to return for continued pre-induction cervical ripening in anticipation for elective induction of labor. Pt verbalized understanding and agrees to above plan. She denies further questions or concerns at this time.
== END 2019-10-08 06:25 | disposition home or self-care (01) ==
LOC: WFO 03:48 → FBP 03:50 → WFO 06:25
PROVIDERS: ATTEND Nurse Practitioner Obstetrics & Gynecology
DX: O47.1 False labor at or after 37 completed weeks of gestation (principal); Z3A.39 39 weeks gestation of pregnancy
CPT/HCPCS: 99213

== ENCOUNTER 2019-10-09 16:05 | Inpatient (IN) | payer MEDICAID ==
[~2019-10-09 16:05] MED LIST: LACTATED RINGERS 1,000 ML IV SCH
--- NOTE | 2019-10-09 16:43 | HISTORY & PHYSICAL EXAMINATION ---
Admit History - Visit Reason Visit Reason: Other - : 2 Parity: 1 Premature: 0 Ectopic: 0 : 0 Care: positive: [facility] Risk/History: positive: None Complications This : positive: None Smoking Status: Former smoker - Mother's Labs Mother's Blood Type: positive: O Mother's RH: positive: Positive GBS: positive: Group B Step Negative Rubella Status: positive: Immune Meds/Allgy - Home Medications Home Medications: Ambulatory Orders Medication Instructions Recorded Confirmed Bcp 05/04/15 05/04/15 Doxylamine/Pyridoxine HCl 1 each PO Q6H PRN #15 tablet. 04/02/16 11/07/17 [Keeley Edmond 10-10 mg Tablet] Vitamin [Trinatal Rx 1] 1 each PO DAILY #90 tablet 04/02/16 11/07/17 Acyclovir 400 mg PO Q8H #30 tablet 11/07/17 Metronidazole [Flagyl] 500 mg PO BID #14 tablet 11/07/17 Polymyxin B Sulf/Trimethoprim 1 drop LEFTEYE Q3H 7 Days drops 11/07/17 [Polytrim Eye Drops] - Allergies Allergies/Adverse Reactions: Allergies Allergy/AdvReac Type Severity Reaction Status Date / Time Penicillins Allergy Mild Rash Verified 11/05/18 18:32 pumpkin Allergy Hives Verified 10/06/19 07:09 Review of Systems - Constitutional Constitutional: denies: Fatigue, Fever, Chills, Malaise - Eyes Eyes: denies: Blurred vision, Spots in vision, Dipolpia - Cardiovascular Cariovascular: denies: Irregular heart rate, Chest pain, Edema - Respiratory Respiratory: denies: SOB at rest - Gastrointestinal Gastrointestinal: denies: Abdominal pain, Constipation, Diarrhea, Nausea, Vomiting - Genitourinary Genitourinary: reports: Flank pain. denies: Dysuria, Frequency, Urgency, Hematuria - Musculoskeletal Musculoskeletal: reports: Back pain. denies: Gout - Integumentary Integumentary: denies: Rash, Pruritis - Neurological Neurological: denies: Headache, Dizziness Physical - Abdominal Exam Vital Signs: Temp Pulse Resp BP Pulse Ox 36.9 C 100 16 119/71 100 10/09/19 16:22 10/09/19 16:22 10/09/19 16:22 10/09/19 16:22 10/09/19 16:22 Contraction Frequency (min/apart): intermittent Contraction Intensity: positive: Mild Uterine Resting Tone: positive: Soft - Monitoring Heart Rate Baseline: 150 Strip Review: positive: Category I - Presentation Presentation: positive: Vertex - Vaginal Exam Membranes: positive: Membranes intact Dilation (in cm): 1 Effacement (%): 50 Station: positive: -3 Cervical Position: positive: Posterior - Speculum Exam Speculum Exam Performed: positive: No Plan for Labor - Plan For Labor I expect patient to be DC'd or transferred within 96 hours.: Yes Plan for Labor: HPI: This 24yo @ 39.3wks gestation presents for pre-induction cervical ripening in anticipation for elective induction of labor due to significant maternal discomfort for the past several weeks. She originally presented for pre-induction cervical ripening 10/06/2019 and was given a total of 5 doses of 50mcg BC misoprostol over the course of 32 hours. She did not make cervical change and due to low staffing on the unit she was released home with precautions and instructions to return today for continued induction of labor. Upon arrival SVE /-3, posterior, vertex with intact membranes. She denies vaginal bleeding or leakage of fluid. She reports intermittent contractions but nothing overly uncomfortable or consistent. She reports +FM. She denies LARKIN, visual disturbances, RUQ or epigastric pain. She has been a patient of [facility] through the duration of her which has been complicated by persistently measuring size less than dates. She has had multiple growth and ALLEY assessments (detailed below) which have all remained WNL. In addition, she was noted to have anemia complicating for which she is taking daily FeSO4 supplementation PO. Of not, FOB has Hirshprung diseease- had genetic counseling with [facility] and recommendation was that the printed circuit board panels developer be made aware at time of delivery for prompt evaluation of the . She was placed on observation at [facility] for pre-induction cervical ripening with misoprostol. Dating criteria: LMP 01/20/2019 Initial ultrasound @ 11.1 wks gestation c/w LMP dating Serial exams - agree OB Hx: G1: 10/05/2016, @ [facility] delivered by Crystal Pizano CNM @ 40.3wks gestation, epidural, female, 7lbs 6.6oz, 11 hr labor G2: Current PMHx: Anxiety, asthma, headaches/migraines, UTI-recurrent Surgical Hx: none Social Hx: Former smoker, no ETOH or IVDA. Pt is a SAHM. Partner is supportive at the bedside. Family Hx: Anxiety/depression - mother; diabetes - PGM; Heart disease - MGM; High cholesterol - MGM; HTN - MGM Medications: PNV, FeSO4, diclegis PRN, albuterol PRN Allergies: [place], penicillin (critical) labs: O positive, antibody negative Rubella immune HIV non-reactive Hep B neg; Hep C neg RPR non-reactive UTOX neg GC/CT neg 1 hour GTT 94 GBS negative repeat GC/CT @ 36wks negative Genetic testing - not done due to poor insurance coverage; had genetic counseling appt with M secondary to paternal diagnosis of Hirshprung disease. Recommendation that baby's printed circuit board panels developer be made aware at time of delivery for prompt evaluation. Immunizations: Influenza 07/31/2019 Tdap 07/17/2019 Ultrasounds: FAS WNL. Posterior placenta, no previa. 3VC. ALLEY WNL. Size c/w dating Growth and ALLEY @ 27wks WNL. EFW 11th percentile. Recommendation to f/u growth and ALLEY in 4 weeks. 08/16/2019 f/u growth and ALLEY WNL - grwoth 29th percentile and ALLEY 9.1 09/27/2019 growth and ALLEY WNL - EFW 3073g, 37.3 percentile Physical Exam: Normocephalic, atraumatic PERRLA Heart RRR w/o M/G/R Lungs CTAB Abdomen gravid, soft, nontender EFW 3100g FHR baseline 150s, moderate variability, + accels, no decels SVE 1/50/-3, posterior, medium consistency, vertex; membranes intact Intermittent contractions appreciated via tocometry Bilateral LE's no edema Mood is good; partner supportive at the bedside. Assessment: 24yo @ 39.3wks gestation by LMP c/w 11.1wk U/S FHR Category I Cervix unfavorable GBS neg Plan: Place in observation status until SROM or active labor Pre-induction cervical ripenign with 50mcg BC misoprostol q 4 hours Continuous monitoring Reviewed plan of care with patient, partner and labor RN at the bedside who are all in agreement with above plan and deny further questions or concerns at this time. Anticipate . Spoke with Dr. Allen, clerk television production physician whom plans to manage the patient at this time secondary to phonograph cartridge assembler being off call. He is in agreement with the above plan as well and has resumed all care of the patient at this time.
[2019-10-09] MEDS ORDERED: SODIUM CHLORIDE FLUSH 0.9% 10 ML SYRINGE IVP SCH (17:00)
[2019-10-09] MEDS: miSOPROStoL 100 MCG TABLET BC SCH ×2 (17:03→22:07)
[2019-10-09] MEDS: SODIUM CHLORIDE FLUSH 0.9% 10 ML SYRINGE IVP PRN (17:04)
[2019-10-09 17:05] LABS: BASOPHILS % (AUTO) 0.4 %; EOSINOPHILS # (AUTO) 0.1 10^3/uL (0.0-0.7); EOSINOPHILS % (AUTO) 0.9 %; HGB - HEMOGLOBIN 11.4 g/dL (12.0-16.0); LYMPHOCYTES # (AUTO) 1.2 10^3/uL (1.5-3.5); LYMPHOCYTES % (AUTO) 15.5 %; MEAN CORPUSCULAR HEMOGLOBIN 28.4 pg (27.0-31.0); MEAN CORPUSCULAR HGB CONC 32.5 g/dL (32.0-36.0); MEAN CORPUSCULAR VOLUME 87.3 fL (81.0-99.0); MEAN PLATELET VOLUME 11.2 fL (7.9-10.8); MONOCYTES # (AUTO) 0.9 10^3/uL (0.0-1.0); NEUTROPHILS # (AUTO) 5.6 10^3/uL (1.5-6.6); NEUTROPHILS % (AUTO) 71.8 %; PLT - PLATELET COUNT 144 10^3/uL (130-450); RED BLOOD COUNT 4.02 10^6/uL (4.20-5.40); RED CELL DISTRIBUTION WIDTH 14.4 % (12.0-15.0); WHITE BLOOD COUNT 7.8 x10^3/uL (4.8-10.8)
[2019-10-09] MEDS ORDERED: CALCIUM CARBONATE CHEW 500 MG TABLET PO PRN (22:14)
[2019-10-10] MEDS: miSOPROStoL 100 MCG TABLET BC SCH ×2 (01:57→05:57)
[2019-10-10] MEDS ORDERED: FAMOTIDINE 20 MG TABLET PO PRN (08:30)
[2019-10-10] MEDS ORDERED: fentaNYL 100 MCG/2 ML VIAL ONE (10:06)
[2019-10-10] MEDS ORDERED: OXYTOCIN/DEXTROSE 5 % 30 UNIT/500 ML BAG IV ONE (10:07)
--- NOTE | 2019-10-10 10:21 | PROVIDER PROGRESS NOTE ---
Labor Progress Note - Uterine Monitoring Contraction Frequency (min/apart): 3 Contraction Intensity: positive: Strong Uterine Resting Tone: positive: Soft - Monitoring Monitor Mode: positive: External ultrasound Heart Rate Baseline: 150 Heart Rate Variability: positive: Moderate (6-25 bmp) Accelerations: positive: Present, 15x15 Decelerations: positive: None Strip Review: positive: Category I - Vaginal Exam Dilation (in cm): 4 Effacement (%): 80 Station: -2 Cervical Position: Posterior - Labor Progress Note Labor Progress Note/Additional Text: Labor crescendo. SROM clear Pt requests an epidural.
[2019-10-10] MEDS ORDERED: fentaNYL 100 MCG/2 ML VIAL IVP PRN (10:22)
[2019-10-10] MEDS ORDERED: OXYTOCIN/DEXTROSE 5 % 30 UNIT/500 ML BAG IV PRN (10:22)
[2019-10-10] MEDS ORDERED: ROPIVACAINE 0.2% 200 MG/100 ML BAG EP ONE (10:26)
[2019-10-10] MEDS ORDERED: ROPIVACAINE 0.2% 200 MG/100 ML BAG EP PRN (11:24)
[2019-10-10] MEDS ORDERED: NALBUPHINE 10 MG/ML AMP IVP PRN ×2 (11:28)
[2019-10-10] MEDS ORDERED: ePHEDrine 50 MG/ML VIAL IVP PRN (11:28)
[2019-10-10] MEDS ORDERED: NALOXONE 0.4 MG/ML VIAL IVP PRN (11:28)
[2019-10-10] MEDS ORDERED: ONDANSETRON 4 MG/2 ML VIAL IVP PRN ×2 (11:28)
[2019-10-10] MEDS ORDERED: LACTATED RINGERS 500 ML IV ONE (11:28)
[2019-10-10] MEDS ORDERED: METOCLOPRAMIDE 10 MG/2 ML VIAL IVP PRN (11:28)
[2019-10-10] MEDS ORDERED: diphenhydrAMINE INJ 50 MG/ML VIAL IVP PRN ×2 (11:28)
[2019-10-10] MEDS ORDERED: oxyCODONE 5 MG TABLET PO PRN (13:11)
--- NOTE | 2019-10-10 13:26 | DELIVERY NOTE ---
Delivery Note - Labor Labor: positive: Other (cervical ripening with cytotec) - Delivery Method Infant Delivery Method: positive: Spontaneous vaginal delivery - Cervical Ripening Method Cervical Ripening Method: positive: Prostaglandin E2 - Presentation Presentation: positive: Vertex, OA - occiput anterior - Nuchal Cord Nuchal Cord: positive: None - Anesthetic Anesthetic Type: - Amniotic Fluid Description Amniotic Fluid Description: positive: Clear - Episiotomy Type Episiotomy Type: positive: None - Laceration Laceration: positive: None - Delivery Outcome Delivery Outcome: positive: Livebirth - : positive: Placed in direct skin contact with mother, Bulb syringe, Stimulated, [place] used [place] sex: positive: Male - Cord Cord: positive: 3 vessels - Placenta Placenta: positive: Intact - Estimated Blood Loss Estimated Blood Loss (in cc): 150 - Post Delivery Events Post Delivery Events: positive: No post delivery events - Delivery Comments (Free Text/Narrative) Delivery Comments (Free Text/Narrative): Pt had been sent home secondary to full L&D unit. Last PM returned for cervical ripening. seh reached 4 cm had an epidural placed fro strong contractions. At 1007 She SROMED clear fluid and reached complete at 1129 started pushing ad 1142. at 1153 delivered a live male infant over an intact Pernium. Ap[gars 9/10. Placenta followed complete at 1203. EBL 150 ml.
[2019-10-10] MEDS: ACETAMINOPHEN 500 MG TABLET PO SCH ×2 (13:47→22:12)
[2019-10-10] MEDS: IBUPROFEN 600 MG TABLET PO SCH ×2 (13:47→19:53)
[2019-10-10] MEDS ORDERED: LACTATED RINGERS 1,000 ML IV SCH (14:00)
[2019-10-10] MEDS: SODIUM CHLORIDE FLUSH 0.9% 10 ML SYRINGE IVP PRN (15:36)
[2019-10-10] MEDS ORDERED: DOCUSATE SODIUM 100 MG CAPSULE PO SCH (21:00)
[2019-10-11] MEDS: IBUPROFEN 600 MG TABLET PO SCH ×2 (03:59→09:57)
[2019-10-11] MEDS: ACETAMINOPHEN 500 MG TABLET PO SCH (08:02)
[2019-10-11 09:20] VITALS: BP 118/78
--- NOTE | 2019-10-11 11:28 | PROVIDER PROGRESS NOTE ---
Subjective - Prog Note Date Prog Note Date: 10/11/19 Prog Note Time: 11:26 - Subjective Pt reports feeling: Improved (Pt is doing well. Pain 0-2/10. Breast feeding.) Objective - Vital Signs/Intake & Output Vital Signs: Vital Signs x48h Temp Pulse Resp BP Pulse Ox 10/11/19 09:00 36.8 C 83 16 118/78 100 10/11/19 05:00 36.8 C 89 16 118/73 97 Intake & Output: Intake & Output 10/08/19 10/09/19 10/10/19 10/11/19 23:59 23:59 23:59 23:59 Intake Total 3000.00 600 Output Total 845 Balance 2155.00 600 - Objective General Appearance: positive: No acute distress, Alert Abdomen: positive: Non-tender, No organomegaly, Mass (At U) - Lab Results Fish Bones: 10/09/19 16:50 Assessment/Plan - Problem List (1) (spontaneous vaginal delivery) Impression: PPD #1 progressing. No episiotomy at time of delivery. Discharge Meds Motrin 600 Discussed Breast feeding. RTC one week.
--- NOTE | 2019-10-11 11:30 | Discharge Plan ---
Discharge Plan Problem Reviewed?: Yes Disposition: Home, Self Care Condition: Good Diet: Regular Activity Restrictions: Pelvic rest 6 weeks Shower Restrictions: No Driving Restrictions: No Weight Bearing: Full Weight No Smoking: If you smoke, Please STOP! Call for help.
--- NOTE | 2019-10-11 13:16 | Labor Flowsheet ---
Labor Flowsheet Datetime Report Generated by CPN: 10/11/2019 13:16 Datetime: 10/11/2019 09:11 VITAL SIGNS NBP Sys/Yue/Mean (mmHg): 118 : 78 : 87 Pulse: 83 LaborFlag: Antepartum Datetime: 10/10/2019 12:03 Stage 2 Comments: 1203 placenta Datetime: 10/10/2019 11:53 UTERINE ACTIVITY Monitor Mode: Palpation Frequency (min): 2-4 Quality: Strong Duration (sec): 50-80 Resting Tone (Palpate): Relaxed Contraction Comments: of a viable male ASSESSMENT A Monitor Mode: Operations Plant Attendant Interventions for FHR: Ultrasound Adjusted FHR Baseline Rate : 135 Variability: Moderate 6-25 bpm Accelerations: None Decelerations: Variable Category: Category II Comments: of a viable male infant. Perineum intact. Bleeding minimal Oxygen Method: Room Air Datetime: 10/10/2019 11:52 Pushing Position: Pushing with Contractions; Pushing Lithotomy Pushing Progress: Perineal Bulging; Rectal Bulging; Presenting Part Visible; with Pushing; Pushing Effectively with Contractions Datetime: 10/10/2019 11:49 SpO2 (%): 100 Datetime: 10/10/2019 11:46 STAGE 2 Pushing: Urge to Push Datetime: 10/10/2019 11:45 Resting Tone IUP (mmHg): soft Datetime: 10/10/2019 11:38 Communication Comments: Dr. Allen @ bedside for delivery Datetime: 10/10/2019 11:29 Monitor Interventions for UA: [place] Adjusted VAGINAL EXAM Dilatation (cm): 10.0 Effacement (%): 100 Station: 2 Exam by: T Faizan RN Vaginal Exam Comments: Dr. Allen Notified Datetime: 10/10/2019 11:10 I/O Interventions: Owens Cath Inserted Anesthesia Level Check: T9 Anesthesia Comments: Still feeling pressure with each contraction Datetime: 10/10/2019 10:48 Epidural Procedure Other: Pump Started; Delivery Dose Datetime: 10/10/2019 10:45 Patient Position/Activity: Left Tilt Datetime: 10/10/2019 10:42 Vaginal Bleeding: Normal Show Cervix, Consistency: Soft Cervix, Position: Midposition Datetime: 10/10/2019 10:37 Epidural Procedure: Loading Dose Datetime: 10/10/2019 10:33 PROCEDURE TIME OUT Procedure Verify: Correct Patient Identity; Accurate Procedure Consent Form; Agreement on Procedure to be Done; Correct Patient Position; Addressed Need to Administer Antibiotics or Fluids for Irrigat ion; Safety Precautions Based on Patient History or Medication Use ANESTHESIA Anesthesia Plans: Epidural Epidural Positioning: Sitting Datetime: 10/10/2019 10:15 PATIENT CARE IV/Blood Work: IV Bolus Started Datetime: 10/10/2019 10:11 MEDICATIONS Analgesics/Sedatives: Fentanyl (mcg) @ 100 Datetime: 10/10/2019 10:09 Stage of : Antepartum Respirations: 24 Temperature (C): 36.5 Provider Notified (Name): JIG MILL OPERATOR Means Notification Reason: Pain; Patient Request Datetime: 10/10/2019 10:07 Membranes Rupture Method: Spontaneous Amniotic Fluid Color: Clear Amniotic Fluid Amount: Moderate COMMUNICATION Communication: Provider at Bedside Datetime: 10/10/2019 10:00 Pattern: Normal: <= 5 Contractions in 10 Minutes Datetime: 10/10/2019 09:50 PAIN Pain Scale: 9 Pain Presence: Intermittent Pain Type: Cramping Pain Location: Abdomen; Back Pain Relief Measures: Comfort Measures Pain Coping: Talking Through Contractions; Crying Pain Assessment Comments: on knees in the tub and resting her chest on the top edge of the tub. Comfort Measures: Hot Shower/Tub/Spa Datetime: 10/10/2019 09:22 Patient Care Comments: Given birthing ball and peanut ball. Encouraged to use the peanut ball whil e in bed. To try extreme lateral position with the peanut ball between her legs. Wants to try the j acuzzi. Tub started. Datetime: 10/10/2019 06:00 Cervical Ripening Agents: Cytotec @ Datetime: 10/10/2019 04:30 Membrane Status: Intact Datetime: 10/09/2019 18:00 FHR Baseline Changes: No Baseline Change Datetime: 10/09/2019 16:40 TEACHING Plan of Care: Plan of Care Discussed Labor/Induction: Cervical Ripening Medications: Cervical Ripening PTL/PROM: Hydration
--- NOTE | 2019-10-11 15:26 | DISCHARGE SUMMARY ---
Physician: Earle Allen MD DATE OF ADMISSION: 10/10/2019 DATE OF DISCHARGE: 10/11/2019 DISCHARGE DIAGNOSES 1. 39 weeks 3 days. 2. Desires induction. DISCHARGE DIAGNOSES 1. 39 weeks 3 days. 2. Desires induction. PROCEDURES 1. Cervical ripening with Cervidil. 2. Epidural. 3. Assisted vaginal delivery. PRESENTING HISTORY: The patient is a 24-year-old G2, P1, who is 39.3 weeks. She presents for induct ion of labor secondary to maternal discomfort. She was seen previously for induction; however, precious hansen of the business of labor and delivery and after receiving 5 doses of misoprostol did not show any progress so it was decided to release her to home. Her labs showed her to be O positive, group B str ep negative and rubella immune. LABORATORIES: CBC on admission showed a white count of 7.8. Hemoglobin was 11.4. Hematocrit was 35 .1. Platelet count was 144. HOSPITAL COURSE: The patient was admitted, given misoprostol. In the morning, she had shown minima l change; however, she spontaneously ruptured and developed significant for labor pains. An epidural was placed for labor analgesia. She progressed to complete and following a short second stage deliv ered a live male over an intact perineum. The Apgars were 9 and 10. Her estimated blood loss was minimal at 150 mL. Her course has been unremarkable. Her pain is minimal. She is b eing discharged to home on Motrin 600 mg for pain. We discussed the need for utilizing contraception . We have also discussed , its limitations, as well as its advantages. She is also jesus alberto re that is not adequate contraception, should watch her breasts for evidence of mastiti s. TD: 10/11/2019 11:38
== END 2019-10-11 13:05 | disposition home or self-care (01) | DRG 807 ==
LOC: WFO 16:05 → FBP 16:06 → UNDOADMOB 16:06 → FBP 16:07 → INTOOBSV 10-10 10:07 → OBSVTOIN 10-10 10:07 → INTOOBSV 10-10 10:23 → UNDOADMOB 10-10 10:23 → FBP 10-10 10:23 → UNDODISIN 10-11 13:05
PROVIDERS: ADMIT Nurse Practitioner Obstetrics & Gynecology; ATTEND Obstetrics & Gynecology
PROC: 10E0XZZ Delivery of Products of Conception, External Approach (ICD-10-PCS; principal; 2019-10-10)
DX: O26.893 Other specified pregnancy related conditions, third trimester (principal); Z37.0 Single live birth; O99.02 Anemia complicating childbirth; O35.2XX0 Maternal care for (suspected) hereditary disease in fetus, not applicable or unspecified; O62.3 Precipitate labor; Z3A.39 39 weeks gestation of pregnancy; Z79.899 Other long term (current) drug therapy; Z87.891 Personal history of nicotine dependence
CPT/HCPCS: 85025; A9270; G0378; J7120

== ENCOUNTER 2020-09-16 09:56 | Emergency (ER) | payer MEDICAID ==
--- NOTE | 2020-09-16 10:02 | ED Physician Documentation ---
PD HPI OPHTHO - Stated complaint Stated Complaint: RT EYE SWELLING - History obtained from History obtained from: Patient - History of Present Illness Timing - onset: Yesterday Timing - duration: Days (2) Timing - details: Gradual onset, Still present Location: Right (redness and swelling, tenderness right upper eyelid.) Associated symptoms: Redness, Swelling (of eyelid). No: Discharge, FB sensation, Photophobia Contributing factors: No: Recent URI, FB, Wears contacts Similar symptoms before: Has not had sx before Review of Systems Constitutional: denies: Fever, Chills Eyes: denies: Loss of vision, Photophobia, Discharge Nose: denies: Rhinorrhea / runny nose, Congestion Throat: denies: Sore throat Respiratory: denies: Cough PD PAST MEDICAL HISTORY - Past Medical History Respiratory: Asthma Psych: Depression - Past Surgical History Past Surgical History: No - Present Medications Home Medications: Ambulatory Orders Medication Instructions Recorded Confirmed Bcp 05/04/15 05/04/15 Doxylamine/Pyridoxine HCl 1 each PO Q6H PRN #15 tablet. 04/02/16 11/07/17 [Keeley Edmond 10-10 mg Tablet] Vitamin [Trinatal Rx 1] 1 each PO DAILY #90 tablet 04/02/16 11/07/17 Acyclovir 400 mg PO Q8H #30 tablet 11/07/17 Polymyxin B Sulf/Trimethoprim 1 drop LEFTEYE Q3H 7 Days drops 11/07/17 [Polytrim Eye Drops] metroNIDAZOLE [Flagyl] 500 mg PO BID #14 tablet 11/07/17 Doxycycline Monohydrate 150 mg PO BID #10 capsule 09/16/20 Erythromycin Base [Erythromycin 1 applic OP QID #3.5 oint...g. 09/16/20 Ophthalmic Ointment] - Allergies Allergies/Adverse Reactions: Allergies Allergy/AdvReac Type Severity Reaction Status Date / Time Penicillins Allergy Mild Rash Verified 09/16/20 10:07 pumpkin Allergy Hives Verified 09/16/20 10:07 - Social History Does the pt smoke?: No Smoking Status: Former smoker Does the pt drink ETOH?: No Does the pt have substance abuse?: No - Immunizations Immunizations are current?: Yes - POLST Patient has POLST: No PD ED PE NORMAL - Vitals Vital signs reviewed: Yes - General General: Alert and oriented X 3, No acute distress, Well developed/nourished - HEENT HEENT: PERRL, EOMI, Ears normal, Pharynx benign, Other (right upper eyelid with medial redness and swelling, focally tender with some swelling. No discharge. Eye itself is normal appearing. ) - Neck Neck: Supple, no meningeal sign, No adenopathy Results - Vitals Vitals: Vital Signs - 24 hr 09/16/20 10:05 Temperature 36.8 C Heart Rate 85 Respiratory 16 Rate Blood Pressure 143/86 H O2 Saturation 99 Oxygen O2 Source Room air PD MEDICAL DECISION MAKING - ED course Complexity details: considered differential (seems stye with some eyelid redness c/w cellulitis as well. ), d/w patient Departure - Departure Disposition: 01 Home, Self Care Clinical Impression: Stye external Qualifiers: Laterality: right Eyelid: upper Qualified Code(s): H00.011 - Hordeolum externum right upper eyelid Eyelid cellulitis Qualifiers: Laterality: right Qualified Code(s): H00.033 - Abscess of eyelid right eye, unspecified eyelid Condition: Stable Record reviewed to determine appropriate education?: Yes Instructions: ED Chalazion Prescriptions: Doxycycline Monohydrate 150 mg PO BID #10 capsule Erythromycin Base [Erythromycin Ophthalmic Ointment] 1 applic OP QID #3.5 oint...g. Comments: [place] or compresses to the eyelid area 2-3 times a day to promote drainage from the gland. Use the erythromycin antibiotic ointment 3-4 times a day lightly to the area as well. Add doxycycline oral antibiotic for the next 3 to 5 days for the infection under the skin. Recheck if not improved well over the next 2 to 3 days. Discharge Date/Time: 09/16/20 10:49
[2020-09-16 10:07] VITALS: BP 143/86
[2020-09-16] MEDS ORDERED: PROPARACAINE 0.5% OPHTH DROPS 15 ML RIGHTEYE STA (10:17)
[2020-09-16] MEDS ORDERED: DOXYCYCLINE 100 MG TABLET PO STA (10:37)
== END 2020-09-16 10:49 | disposition home or self-care (01) ==
LOC: ED 09:56
DX: H00.011 Hordeolum externum right upper eyelid (principal); H00.031 Abscess of right upper eyelid; Z87.891 Personal history of nicotine dependence
CPT/HCPCS: 99282; 99283; A9270; J3490

== ENCOUNTER 2021-02-27 20:27 | Outpatient (CLI) | payer MEDICAID | END 2021-02-27 20:28 | disposition home or self-care (01) | LOC: COV 20:27 | PROVIDERS: ATTEND Family Medicine | DX: U07.1 COVID-19 (principal) ==

== ENCOUNTER 2021-08-17 18:47 | Outpatient (CLI) | payer MEDICAID ==
--- NOTE | 2021-08-18 08:23 | Ultrasound Report ---
PROCEDURE: Pelvic w/Transvaginal INDICATIONS: PELVIC PAIN TECHNIQUE: Real-time scanning was performed of the pelvic organs, with image documentation. Additional endovagi nal scanning was necessary due to incomplete visualization of the adnexal and endometrial structures by transabdominal scanning. COMPARISON: March 18, 2019. FINDINGS: UTERUS: Anteverted, heterogeneous echotexture, and measures 7.7 x 3.4 x 4.1 cm. The endometrial thickness measures 4.3 mm. RIGHT OVARY: 4 x 2.9 x 4.2 cm. Color-flow projects over the ovarian tissue. A 3.1 x 2.9 x 2.9 cm echo genic focus is seen within the right ovary (previously measured 3 x 2.8 x 2.6 cm), most consistent wi th a dermoid. LEFT OVARY: 2.5 x 1.7 x 3.4 cm. Color-flow projects over the ovarian tissue. OTHER: None. IMPRESSION: 1.No significant interval change. Reviewed by: Jamaal Dueñas MD on 08/18/2021 8:21 AM PDT Approved by: Jamaal Dueñas MD on 08/18/2021 8:21 AM PDT Station ID: [id number]
== END 2021-08-17 18:48 | disposition home or self-care (01) ==
LOC: DI 18:47
PROVIDERS: ATTEND Obstetrics & Gynecology
DX: R10.2 Pelvic and perineal pain (principal); Z87.42 Personal history of other diseases of the female genital tract

== ENCOUNTER 2021-11-28 09:52 | Emergency (ER) | payer MEDICAID ==
[2021-11-28 10:09] VITALS: BP 136/74
[2021-11-28] MEDS ORDERED: lidocaine 1% 20 ML MDV SUBQ ONE (11:21)
--- NOTE | 2021-11-28 11:45 | ED Physician Documentation ---
PD HPI SKIN - Stated complaint Stated Complaint: ABD PX - Chief complaint Chief Complaint: General - History obtained from History obtained from: Patient - History of Present Illness Timing - onset: How many days ago (8) Timing - duration: Days (8) Timing - details: Gradual onset, Still present Location: Abdomen Quality / character: Painful, Discolored, Raised, Crusted, Swelling Associated symptoms: Abd pain. No: Fever, Myalgias, Joint pain, Headache, Facial swelling, Dyspnea, N/V/D, Urinary sx Similar symptoms before: Has not had sx before Recently seen: Not recently seen - Additional information Additional information: 26-year-old female has developed a spot of redness and swelling to the lower abdomen below the umbilicus over the past week. This is grown in size it is not drained there is some fluctuance is extremely painful. She has not had fever. Review of Systems Constitutional: denies: Fever Nose: reports: Congestion Respiratory: denies: Cough GI: reports: Abdominal Pain. denies: Vomiting : denies: Dysuria Skin: reports: Lesions. denies: Rash Musculoskeletal: denies: Neck pain, Back pain, Extremity pain PD PAST MEDICAL HISTORY - Past Medical History Respiratory: Asthma Psych: Depression - Past Surgical History Past Surgical History: No - Present Medications Home Medications: Ambulatory Orders Medication Instructions Recorded Confirmed Bcp 05/04/15 05/04/15 Doxylamine/Pyridoxine HCl 1 each PO Q6H PRN #15 tablet. 04/02/16 11/07/17 [Keeley Edmond 10-10 mg Tablet] Vitamin [Trinatal Rx 1] 1 each PO DAILY #90 tablet 04/02/16 11/07/17 Acyclovir 400 mg PO Q8H #30 tablet 11/07/17 Polymyxin B Sulf/Trimethoprim 1 drop LEFTEYE Q3H 7 Days drops 11/07/17 [Polytrim Eye Drops] metroNIDAZOLE [Flagyl] 500 mg PO BID #14 tablet 11/07/17 Doxycycline Monohydrate 150 mg PO BID #10 capsule 09/16/20 Erythromycin Base [Erythromycin 1 applic OP QID #3.5 oint...g. 09/16/20 Ophthalmic Ointment] HYDROcod/ACETAM 5/325 [[place] 5/325] 1 - 2 tablet PO Q6H PRN #14 tablet 11/28/21 Sulfamethox/Trimeth 800/160 1 each PO BID #14 tablet 11/28/21 [Bactrim Ds] - Allergies Allergies/Adverse Reactions: Allergies Allergy/AdvReac Type Severity Reaction Status Date / Time Penicillins Allergy Mild Rash Verified 11/28/21 10:10 pumpkin Allergy Hives Verified 11/28/21 10:10 - Social History Does the pt smoke?: No Smoking Status: Former smoker Does the pt drink ETOH?: No Does the pt have substance abuse?: No - Immunizations Immunizations are current?: Yes - POLST Patient has POLST: No PD ED PE NORMAL - Vitals Vital signs reviewed: Yes (Hypertensive mild) - General General: Alert and oriented X 3, No acute distress, Well developed/nourished - HEENT HEENT: Atraumatic, PERRL, EOMI - Respiratory Respiratory: No respiratory distress - Abdomen Abdomen: Normal bowel sounds, Soft, Non distended, No organomegaly, Other (There is an area 6 cm x 3 cm to the lower abdomen in an oval fashion with a central area of skin breakdown without drainage the center of this is fluctuant. There is tender.) - Back Back: No CVA TTP - Derm Derm: Normal color, Warm and dry, No rash - Extremities Extremities: No deformity, No edema - Neuro Neuro: Alert and oriented X 3, literary writer 2-12 intact, No motor deficit, No sensory deficit, Normal speech Eye Opening: Spontaneous Motor: Obeys Commands Verbal: Oriented GCS Score: 15 - Psych Psych: Normal mood, Normal affect Results - Vitals Vitals: Vital Signs - 24 hr 11/28/21 10:04 Temperature 36.4 C L Heart Rate 84 Respiratory 15 Rate Blood Pressure 136/74 H O2 Saturation 100 Oxygen O2 Source Room air Procedures - Abscess I&D (location) abd Preparation: Chlorhexadine, Lidocaine 1% Incision: Incised with scalpel, Purulent drainage, Loculations broken, Irrigated, Culture obtained Other: Dressing applied, Antibiotic prescribed, Other (painful) PD MEDICAL DECISION MAKING - ED course Complexity details: considered differential, d/w patient ED course: 26-year-old female with a lower abdominal wall abscess has a incision and drainage done packing is not applied a culture is obtained and she is placed on to [facility]. Departure - Departure Disposition: 01 Home, Self Care Clinical Impression: Abdominal abscess Condition: Stable Instructions: ED Abscess IandD Follow-Up: Rolando Khan MD [Provider Admit Priv/Credential] - Prescriptions: Sulfamethox/Trimeth 800/160 [Bactrim Ds] 1 each PO BID #14 tablet HYDROcod/ACETAM 5/325 [[place] 5/325] 1 - 2 tablet PO Q6H PRN #14 tablet PRN Reason: Pain
== END 2021-11-28 12:39 | disposition home or self-care (01) ==
LOC: ED 09:52
DX: L02.211 Cutaneous abscess of abdominal wall (principal); Z87.891 Personal history of nicotine dependence
CPT/HCPCS: 10060; 87070; 87181; 87205; 99282

== ENCOUNTER 2022-02-12 17:35 | Outpatient (CLI) | payer MEDICAID | END 2022-02-12 17:36 | disposition home or self-care (01) | LOC: LAB 17:35 | PROVIDERS: ATTEND Obstetrics & Gynecology | DX: Z01.812 Encounter for preprocedural laboratory examination (principal); D27.9 Benign neoplasm of unspecified ovary; Z20.822 Contact with and (suspected) exposure to COVID-19 | CPT/HCPCS: 86850; 86900; 86901 ==

== ENCOUNTER 2022-02-13 06:27 | Day surgery (SDC) | payer MEDICAID ==
[~2022-02-13 06:27] MED LIST changes: +ACETAMINOPHEN 1,000 MG/100 ML 100 ML IV ONE; +CELECOXIB 100 MG CAPSULE PO ONE; +GABAPENTIN 400 MG CAPSULE ONE; -LACTATED RINGERS 1,000 ML IV SCH
[2022-02-13] MEDS ORDERED: LACTATED RINGERS 1,000 ML IV ONE (07:02)
[2022-02-13] MEDS ORDERED: MIDAZOLAM 2 MG/2 ML VIAL ONE (07:05)
[2022-02-13] MEDS ORDERED: fentaNYL 100 MCG/2 ML VIAL ONE ×2 (07:06→10:17)
[2022-02-13] MEDS ORDERED: PROPOFOL 200 MG/20 ML VIAL IVP ONE (07:06)
[2022-02-13] MEDS ORDERED: LIDOCAINE-MPF 2% 5 ML VIAL ONE (07:06)
[2022-02-13] MEDS ORDERED: ROCURONIUM 50 MG/5 ML VIAL ONE (07:13)
--- NOTE | 2022-02-13 07:17 | ANESTHESIA ---
Pre-Anesthesia VS, & Labs - Diagnosis desires sterilization, ovarian dermoid cyst - Procedure laparoscopic bilateral salpingectomy, ovarian cystectomy Vital Signs: Temp Pulse Resp BP Pulse Ox 36.8 C 98 16 121/89 H 98 02/13/22 06:35 02/13/22 06:35 02/13/22 06:35 02/13/22 06:35 02/13/22 06:35 Height: 5 ft 3 in Weight (kg): 69 kg Body Mass Index: 26.9 BMI Classification: Overweight - NPO >8 hours - Is Patient ?: No - Lab Results Current Lab Results: Laboratory Tests 02/13/22 06:50: POC Whole Bld Glucose 88 Home Medications and Allergies Bcp 1 tab PO DAILY 05/04/15 Allergies/Adverse Reactions: Allergies Allergy/AdvReac Type Severity Reaction Status Date / Time Penicillins Allergy Mild Rash Verified 02/13/22 07:04 pumpkin Allergy Hives Verified 02/13/22 07:04 Anes History & Medical History - Anesthetic History Family history of Anesthesia Complications: Denies Family history of Malignant Hyperthermia: Denies - Medical History Cardiovascular: reports: None Pulmonary: reports: Asthma (last used inhaler a year ago) Gastrointestinal: reports: Chronic constipation Urinary: reports: None Neuro: reports: None Musculoskeletal: reports: Chronic back pain Endocrine/Autoimmune: reports: None Blood Disorders: reports: None Skin: reports: Eczema Smoking Status: Former smoker (quit 3 years ago) Psychosocial: reports: Depression, Anxiety History of Cancer?: No Exam General: Alert, Oriented x3, Cooperative, No acute distress Dental: WNL Mouth Openin Fingerbreadth Neck Mobility: Normal Mallampati classification: II Thyromental Distance: 4-6 cm Respiratory: Lungs clear, Normal breath sounds, No respiratory distress, No accessory muscle use Cardiovascular: Regular rate, Normal S1, Normal S2, No murmurs Mental/Cognitive Status: Alert/Oriented X3, Normal for patient Plan Anesthesia Type: General Consent for Procedure(s) Verified and Reviewed: Yes Code Status: Attempt Resuscitation ASA classification: 2-Mild systemic disease Is this case an emergency?: No
[2022-02-13 07:20] LABS: HCG UR QUAL NEGATIVE
[2022-02-13] MEDS ORDERED: HYDROmorphone 0.5 MG/0.5 ML SYRINGE IVP PRN (07:21)
[2022-02-13] MEDS ORDERED: MORPHINE 2 MG/ML CARPUJECT IVP PRN (07:21)
[2022-02-13] MEDS ORDERED: ONDANSETRON 4 MG/2 ML VIAL IVP PRN (07:21)
[2022-02-13] MEDS ORDERED: ATROPINE ABBOJECT 1 MG/10 ML SYRINGE IVP PRN (07:21)
[2022-02-13] MEDS ORDERED: NALOXONE 0.4 MG/ML VIAL IVP PRN (07:21)
[2022-02-13] MEDS ORDERED: LIDOCAINE MPF 2%-EPI 1:200000 20 ML VIAL ONE (07:28)
[2022-02-13] MEDS ORDERED: BUPIVACAINE 0.25% PF 30 ML VIAL ONE (07:28)
--- NOTE | 2022-02-13 07:49 | HISTORY & PHYSICAL EXAMINATION ---
History and Physical - History and Physical HPI: Patient is a 26-year-old -0-1-1 presenting today for laparoscopic bilateral salpingectomy and right ovarian cystectomy. She had a 3 cm cyst, likely a dermoid and would like this removed. She understands the risks of surgery as well as permanent sterilization and all questions were asked.. All other symptoms reviewed and were negative except per HPI. PMH Chronic constipation, pelvic pain, anxiety, asthma PSH Denies SH Denies alcohol or drug use Family History Mother: Anxiety, depression Paternal grandmother: Diabetes Maternal grandmother: Heart disease, high cholesterol, hypertension Allergies Penicillin Medications Albuterol as needed Sertraline 100 mg daily Norethindrone/ethinyl estradiol Physical exam: Temp Pulse Resp BP Pulse Ox 98.2 F 98 16 121/89 H 98 02/13/22 06:35 02/13/22 06:35 02/13/22 06:35 02/13/22 06:35 02/13/22 06:35 General: Alert, oriented, no acute distress Head: Normal cephalic atraumatic Eyes: PERRLA, extraocular motions intact. Respiratory: Normal rate of respiration. No accessory muscle use, normal respiratory effort. Cardiovascular: Regular rate and rhythm Abdomen: Nontender, nondistended Extremities: Normal range of motion Neuro: Oriented x3. Normal movements Psych: Appropriate mood and affect. Normal judgment and insight Plan 26-year-old -0-1-1 with right ovarian dermoid cyst and desiring sterility 1. Right ovarian cyst: Patient is counseled the risk, benefits, alternatives of the procedure and would like to proceed with laparoscopic ovarian cystectomy. We discussed the risk of bleeding, infection, damage to other organs. We specifically discussed the risk of damage to the ovary attached to the cyst. We discussed that this would slightly decrease the age of menopause, but the increase should be approximate 1 to 2 years. Her other ovarian function would compensate for the last ovary. 2. Desiring sterility: We discussed the risks, alternatives, benefits to this. We discussed long-acting control such as IUDs and implants. We had discussion about partner vasectomy and the pros and cons to this including a smaller surgery, and easier recovery. We discussed the general risk of surgery including infection, bleeding, damage to other organs, needing a larger incision. Specific to tubal ligation, we discussed the risk of regret, and discussed that regret is greater in those under 30, without children, and not in stable relationships. Patient says she is confident in her decision to not have any more children. We also discussed the risk of failure, and that less than 1/100 tubal ligation fail, but if it did, she would be at increased risk of ectopic . Patient desires to proceed with bilateral tubal ligation.
[2022-02-13] MEDS ORDERED: LACTATED RINGERS 1,000 ML IV SCH (08:00)
[2022-02-13] MEDS ORDERED: SCOPOLAMINE PATCH TOP SCH (08:00)
[2022-02-13] MEDS ORDERED: BUPIVACAINE 0.25% PF 30 ML VIAL SUBQ ONE ×3 (08:30)
[2022-02-13] MEDS ORDERED: LIDOCAINE MPF 2%-EPI 1:200000 20 ML VIAL SUBQ ONE ×3 (08:34)
[2022-02-13] MEDS ORDERED: NEOSTIGMINE 1 MG/1 ML 10 ML MDV ONE (09:11)
[2022-02-13] MEDS ORDERED: GLYCOPYRROLATE 1 MG/5 ML VIAL ONE (09:11)
--- NOTE | 2022-02-13 09:49 | OPERATIVE REPORT ---
Operative Report - General Procedure Date: 02/13/22 Planned Procedure: Laparoscopic right ovarian cystectomy and bilateral salpingectomy Pre-Op Diagnosis: Abdominal pain, dermoid cyst, desires sterility Procedure Performed: Laparoscopic right ovarian cystectomy and bilateral salpingectomy Post Op Diagnosis: Same - Procedure Note Primary Surgeon: Vickey Pyle MD Secondary Surgeon: Pat Knight MD Anesthesia Provider: Gianfranco Castillo CRNA Anesthesia Technique: General ET tube Pathology: Right ovarian cyst Bilateral uterine tubes IV Fluids (mL): 1,000 Estimated Blood Loss (mL): 5 Urine Output (mL): 300 Complications: None - Other Other Information/Narrative: Patient was taken to the operating room and placed in dorsal supine position. General anesthesia was obtained without difficulty. Patient was placed in yellowfin stirrups in the dorsal lithotomy position. Patient was prepped and draped in the usual sterile fashion. Using a bivalve speculum and a single- tooth tenaculum, the cervix was grasped and the cervix was found to have a small amount of dilation which allowed the easy passage of the manipulator which was inflated using a 5 mL syringe. Sterile tire was exchanged and attention was turned to the abdominal portion the procedure. A 5 mm umbilical incision was made and a 5 mm trocar was used to place the umbilical port under direct visualization using a Visiport. Subsequently a right and left lower quadrant port was placed under direct visualization. Exam of the pelvis showed normal-appearing uterus and tubes. The right ovary showed a small cyst. The left ovary appeared to have a 1cm simple-appearing physiological cyst. The left uterine tube was grasped at the fimbriated end and using the LigaSure device, it was coagulated and cut starting distally and working proximally along the mesosalpinx until near the cornua where it was transected. The transected tube was through the port. The right side was then similarly coagulated, cut, transected, and removed from the port. Attention was then turned to the ovarian cyst. Using monopolar scissors, a small incision was made in the side of the ovarian tissue. Using combination of [place] gentle dissection and monopolar scissor dissection, the cyst was shelled from the ovarian parenchyma. This was shelled out and peeled off of the stroma. After removal of the cyst, the left lower quadrant port was removed and the incision was extended to allow a 10 mm port. After port placement, an Endo Catch bag was inserted and opened in the abdomen to obtain the specimen. It was drawn to the edge of the incision and the bag was removed from the abdomen by drawing the ovary to the incision, opening the cyst and removing the fatty fluid with some hair with a suction sales marketing manager until the solid components were able to be passed through the 10 mm incision. Assessment of the ovary and pelvic organs demonstrated hemostasis. Using a C morena-Yomi device, the 10 mm port site was closed with an 0 Vicryl suture. The abdomen was evacuated from air as the remaining ports were removed. The incisions were closed with 4-0 Monocryl and covered with Dermabond. Sponge and needle counts were correct x2. The patient was taken to the PACU in stable condition I appreciate the assistance of Dr. Knight during this procedure, and the a ssistance in retraction, visualization, dissection, and overall assistance during the case were instrumental to the patient's wellbeing.
[2022-02-13] MEDS ORDERED: LACTATED RINGERS 700 ML IV ONE (09:53)
[2022-02-13] MEDS ORDERED: HYDROmorphone 0.5 MG/0.5 ML SYRINGE ONE (10:06)
[2022-02-13] MEDS: fentaNYL 100 MCG/2 ML VIAL IVP PRN ×4 (10:07→10:24)
--- NOTE | 2022-02-13 10:25 | ANESTHESIA POST OP EVALUATION ---
Anesthesia Post Eval - Post Anesthesia Eval Vitals: Last Vital Signs Temp 36.3 C L 02/13/22 10:21 Pulse 73 02/13/22 10:21 Resp 18 02/13/22 10:21 BP 109/65 02/13/22 10:21 Pulse Ox 100 02/13/22 10:21 CV Function Including HR & BP: Stable Pain Control: Satisfactory Nausea & Vomiting: Negative Mental Status: Baseline Respiratory Status: Airway Patent Hydration Status: Satisfactory Anesthesia Complications: None
[2022-02-13] MEDS ORDERED: KETAMINE 500 MG/10 ML VIAL ONE (10:53)
[2022-02-13] MEDS ORDERED: SODIUM CHLORIDE 0.9% 10 ML VIAL IVP ONE (10:54)
[2022-02-13] MEDS ORDERED: oxyCODONE 5 MG TABLET ONE (11:39)
[2022-02-13 15:16] VITALS: BP 108/62
== END 2022-02-13 06:28 | disposition home or self-care (01) ==
LOC: SDS 06:27
PROVIDERS: ATTEND Obstetrics & Gynecology
PROC: 0UT74ZZ Resection of Bilateral Fallopian Tubes, Percutaneous Endoscopic Approach (ICD-10-PCS; 2022-02-13)
PROC: 0UB04ZZ Excision of Right Ovary, Percutaneous Endoscopic Approach (ICD-10-PCS; principal; 2022-02-13 07:30)
DX: D27.0 Benign neoplasm of right ovary (principal); Z30.2 Encounter for sterilization; Z87.891 Personal history of nicotine dependence
CPT/HCPCS: 58661; 58662; 81025; A9270; J0131; J1170; J3490; J7120; 86850; 86900; 86901

== ENCOUNTER 2022-02-23 16:09 | Outpatient (CLI) | payer MEDICAID ==
[2022-02-23 16:19] LABS: BILIRUBIN,URINE NEGATIVE (NEGATIVE); GLUCOSE, URINE (UA) NEGATIVE (NEGATIVE); KETONES,URINE (UA) NEGATIVE (NEGATIVE); LEUKOCYTE ESTERASE, URINE NEGATIVE (NEGATIVE); NITRITE,URINE NEGATIVE (NEGATIVE); OCCULT BLOOD,URINE NEGATIVE (NEGATIVE); PROTEIN,URINE NEGATIVE (NEGATIVE); UROBILINOGEN,URINE 0.2 (NORMAL) E.U./dL (NORMAL)
[2022-02-23 16:28] LABS: BACTERIA,URINE Rare /HPF (None Seen); CLARITY,URINE CLEAR (CLEAR); RBC,URINE None Seen /HPF (0-5); SQUAMOUS EPITHELIAL CELL,UR FEW Squamous (<= Few); WBC,URINE 0-3 /HPF (0-5)
== END 2022-02-23 16:10 | disposition home or self-care (01) ==
LOC: LAB 16:09
PROVIDERS: ATTEND Obstetrics & Gynecology
DX: R10.9 Unspecified abdominal pain (principal); N30.00 Acute cystitis without hematuria
CPT/HCPCS: 81001; 87086

== ENCOUNTER 2024-06-10 10:15 | Outpatient (CLI) | payer MEDICAID, OTHER ==
--- NOTE | 2024-06-12 09:10 | XRAY Report ---
PROCEDURE: Thoracic Spine 2V INDICATIONS: THORACIC BACK PAIN TECHNIQUE: 2 views of the thoracic spine were acquired. COMPARISON: None. FINDINGS: Bones: Schmorl's node of superior endplate of T12 or L1 noted on lateral view. No fractures or disloc ations. 12 pairs of ribs are noted, and appear intact where visualized. Soft tissues: No paravertebral stripe thickening. IMPRESSION: No acute osseous findings Possible Schmorl's node of superior endplate of T12 or L1 Reviewed by: Carlos Alberto Perea MD on 06/12/2024 9:09 AM PDT Approved by: Carlos Alberto Perea MD on 06/12/2024 9:09 AM PDT Station ID: [id number]
== END 2024-06-10 10:30 | disposition home or self-care (01) ==
LOC: DI.N 10:15
PROVIDERS: ATTEND Physician Assistant Medical
DX: M54.6 Pain in thoracic spine (principal)

== ENCOUNTER 2024-06-13 08:04 | Outpatient (CLI) | payer OTHER ==
--- NOTE | 2024-06-13 21:31 | XRAY Report ---
PROCEDURE: Thoracic Spine 2V INDICATIONS: THORACIC PX TECHNIQUE: 3 views of the thoracic spine were acquired. COMPARISON: 06/10/2024. FINDINGS: Bones: No short interval change. No fractures or dislocations. No suspicious bony lesions. 12 pair s of ribs are noted, and appear intact where visualized. Soft tissues: No paravertebral stripe thickening. IMPRESSION: No acute bony abnormality. No significant degenerative change. No short interval change. Reviewed by: Albert Carcamo MD on 06/13/2024 9:29 PM PDT Approved by: Albert Carcamo MD on 06/13/2024 9:29 PM PDT Station ID: [id number]
== END 2024-06-13 08:05 | disposition home or self-care (01) ==
LOC: DI 08:04
PROVIDERS: ATTEND Physician Assistant Medical
DX: M54.6 Pain in thoracic spine (principal)